=== PATIENT | male | born 1955 | race Caucasian/White ===

== ENCOUNTER 2018-08-07 10:42 | Outpatient (CLI) | payer OTHER, SELFPAY ==
[2018-08-07] VITALS (8 sets, daily range): BP systolic 106–129; BP diastolic 60–82; PULSE 69–88; RESP 16–18; TEMP 36.5; O2SAT 98–100
--- NOTE | 2018-08-07 10:42 | DI.RAD.S_ITS ---
PROCEDURE: PAIN L/SI FACET INJ/BLK 1STL INDICATIONS: SPONDYLOSIS FINDINGS: Fluoroscopic spot filming was performed to verify placement of spinal needles at the L4-5, L5-S1 level(s), as labeled on the films. Appropriate location(s) of the needle tip(s) was confirmed by injection of iodinated contrast. Dictated by: Andre Meneses M.D. on 08/07/2018 at 13:03 Approved by: Andre Meneses M.D. on 08/07/2018 at 13:04
[2018-08-07] MEDS: MIDAZOLAM 5 MG/5 ML VIAL IV (11:29)
[2018-08-07] MEDS: IOPAMIDOL 15 ML VIAL 3 ML INJ (11:33)
[2018-08-07] MEDS: BETAMETHASONE 30 MG/5 ML MDV 12 MG INJ (11:34)
[2018-08-07] MEDS: BUPIVACAINE 0.5% (PF) VIAL 2 ML INJ (11:34)
--- NOTE | 2018-08-07 11:39 | PC.NURSE ---
assiting pt off table and transporting to post proc area in stable condition
--- NOTE | 2018-08-07 11:41 | P.PCN_ITS ---
Procedures Date/Time Date of procedure: 08/07/18 Time of procedure: 11:40 General Procedure description: PREOP DIAGNOSIS 1. FACET ARTHROPATHY, 2. AXIAL LBP, 3. MULTILEVEL DDD, POST OP DIAGNOSIS 1. FACET ARTHROPATHY, 2. AXIAL LBP, 3. MULTILEVEL DDD, PROCEDURES 1. FLUORSCOPICALLY GUIDED CONTRAST CONTROLLED FACET JOINT INJECTIONS RIGHT L4/5 , L5/S1 SURGEON: Madi Schultz, DO INDICATIONS Hao is referred by for treatment of Axial LBP FINDINGS Multilevel Facet Arthropathy with Clinically significant axial LBP DESCRIPTION OF PROCEDURE Fluoroscopically guided, contrast-controlled right L4/5, L5/S1 facet joint injections. Following denial of allergy and review of potential side effects and complications, including, but not necessarily limited to, infection, allergic reaction, local tissue breakdown, stroke, temporary or permanent nerve injury, paralysis, and possible , the patient indicated that the patient understood and agreed to proceed. An informed consent document was signed by the patient, witnessed by a nurse, and placed in the patient's chart. Additionally, other treatment options including medications, modalities, and physical therapy were reviewed with the patient. After review of previous anaesthesic history and IV conscious sedation the patient was deemed safe to proceed with todays procedure with IV conscious sedation as ASA class II designation. Safety time-out was performed to confirm patient ID, procedure to be performed and site of procedure. IV sedation was accomplished with a combination of 3mg was administered by the RN after DO order , titrated to patient comfort during the course of the procedure while the patient remained responsive to all verbal commands. In the prone position, following sterile prep and drape of the lumbar region, the posterior aspect of the right L4/5, L5/S1 facet joints were identified fluoroscopically. The skin was anesthetized via a 25-gauge 1.5-inch needle with 1% lidocaine solution into the corresponding facet joints. At this point, a 22-gauge 3.5-inch spinal needle was atraumatically introduced and advanced under fluoroscopic guidance into the corresponding facet joints. Following negative aspiration, injections of approximately 0.2-cc of Isovue 200 confirmed interarticular placement without vascular uptake. Radiological data, including multiple fluoroscopic views of the lumbosacral spine, reveal a spinal needle at the right L4/5, L5/S1 facet joints. Subsequent views show flow of contrast material both superiorly and inferiorly within the joint space without vascular or intrathecal uptake. At this point, a total of 0.5 cc including a mixture of 0.25cc Marcaine and 0.25cc betamethasone was injected without complication into each of the corresponding facet joints. The procedure tolerated the procedure well without signs or symptoms of complications prior to transfer to the recovery area continued monitoring without incident. The patient was then transferred to the recovery area where they were observed for an appropriate period of time after the injection. The patient reported a VAS score of 7 prior to the procedure and a post-procedure VAS of 0. Total Fluoroscopy Time: 12.7 seconds Total Conscious Sedation Time: 24min POST OP INSTRUCTIONS The patient was provided a Pain Log to continue to record their response to the target-specific procedure prior to follow-up visit with their referring physician. Additionally, specific post-injection care instructions and a contact number to our office were provided if concerns arise regarding possible complications associated with the procedure are suspected. Madi Schultz, Complications: none
== END 2018-08-07 12:07 | disposition home or self-care (01) ==
LOC: RAD 10:42
PROVIDERS: Family Provider Neurological Surgery; PCP Family Medicine; Visit Provider Physical Medicine & Rehabilitation
DX: M47.816 Spondylosis without myelopathy or radiculopathy, lumbar region (principal); M47.817 Spondylosis without myelopathy or radiculopathy, lumbosacral region; M54.5 Low back pain; M51.36 Other intervertebral disc degeneration, lumbar region; M51.37 Other intervertebral disc degeneration, lumbosacral region
CPT/HCPCS: 64493; 64494; 99152; J0702; J2250

== ENCOUNTER 2018-08-28 10:21 | Outpatient (CLI) | payer OTHER, SELFPAY ==
[2018-08-28] VITALS (9 sets, daily range): BP systolic 119–147; BP diastolic 71–87; PULSE 74–91; RESP 16–18; TEMP 36.3; O2SAT 98–100
--- NOTE | 2018-08-28 10:24 | DI.RAD.S_ITS ---
PROCEDURE: PAIN L/S TRANSFORAMINAL INJECT INDICATIONS: SPONDYLOSIS FINDINGS: Fluoroscopic spot filming was performed to verify placement of spinal needles at the right L4-5 level, as labeled on the films. Appropriate location(s) of the needle tip(s) was confirmed by injection of iodinated contrast. IMPRESSION: Normal positioning of a injection needle tip for perineural epidural right L4-5 steroid injection. Dictated by: Orlando Hopson M.D. on 08/28/2018 at 12:16 Approved by: Orlando Hopson M.D. on 08/28/2018 at 12:17
[2018-08-28] MEDS: MIDAZOLAM 5 MG/5 ML VIAL IV (10:58)
[2018-08-28] MEDS: DEXAMETHASONE 10 MG/ML VIAL 20 MG INJ (11:04)
[2018-08-28] MEDS: IOPAMIDOL 15 ML VIAL 3 ML INJ (11:04)
[2018-08-28] MEDS: methylPREDNISolone acetate 80 MG/ML VIAL INJ (11:04)
[2018-08-28] MEDS: BUPIVACAINE 0.25% (PF) VIAL 2 ML INJ (11:04)
--- NOTE | 2018-08-28 11:06 | PC.NURSE ---
assisting pt off table and transporting to post proc area in stable condition
--- NOTE | 2018-08-28 11:11 | P.PCN_ITS ---
Procedures Date/Time Date of procedure: 08/28/18 Time of procedure: 11:11 General Procedure description: PREOP DIAGNOSIS 1. FORMAINAL STENOSIS WITH LE SYMPTOMS POST OP DIAGNOSIS 1. FORMAINAL STENOSIS WITH LE SYMPTOMS PROCEDURES 1. FLUOROSCOPICALLY GUIDED CONTRAST CONTROLLED TRANSFORAMINAL EPIDURAL STEROID INJECTION - RIGHT L4/5 TFESI PHYSICIAN: Madi Schultz DO INDICATIONS: Hao is referred by Dr. Velarde for treatment of HNP with Right LE Symptoms FINDINGS Foraminal Nerve Root Compression secondary to disc disease and facet hypertrophy DESCRIPTION OF PROCEDURE: Following denial of allergy and review of potential side effects and complications, including, but not necessarily limited to, infection, allergic reaction, local tissue breakdown, stroke, temporary or permanent nerve injury, paralysis, and possible , the patient indicated that the patient understood and agreed to proceed. An informed consent document was signed by the patient, witnessed by a nurse, and placed in the patient's chart. Additionally, other treatment options including medications, modalities, and physical therapy were reviewed with the patient. After review of previous anaesthesic history and IV conscious sedation the patient was deemed safe to proceed with todays procedure with IV conscious sedation as ASA class II designation. Safety time-out was performed to confirm patient ID, procedure to be performed and site of procedure. IV sedation was accomplished with a combination of 3mg of Versed was administered by the RN after DO order, titrated to patient comfort during the course of the procedure while the patient remained responsive to all verbal commands In the prone position following sterile prep and drape of the lumbar region, the Right L4/5 posterior neuroforamen was identified fluoroscopically. The skin was anesthetized via a 25-gauge 1.5-inch needle with 1% lidocaine solution. At this point, a 25-gauge 3.5-inch spinal needle was atraumatically introduced and advanced under fluoroscopic guidance through the posterior Right L4/5 neuroforamen to approximately the anterior aspect of the canal. Depth was confirmed on lateral view. Following negative aspiration, injection of approximately 1.5 cc of Isovue 200 under live fluoroscopy in the AP view confirmed excellent flow along the nerve root, into the epidural space without vascular or intrathecal uptake observed Radiological data, including multiple fluoroscopic views of the lumbosacral spine, reveal a spinal needle at the right L4/5 posterior neuroforamen. Subsequent views show flow of contrast material flowing superiorly and inferiorl y along the nerve root confirming epidural flow. Subsequently, a test dose of 1.5 cc of 1% lidocaine solution was administered and patient was observed for two minutes for signs or symptoms of complications, including abdominal pain, shortness of breath, bilateral upper or lower extremity weakness, nausea and vomiting, prior to steroid injection. At this point, a total of 3 cc or 20 mg of dexamethasone and 80mg Depo Medrol was injected without incident. The procedure tolerated the procedure well without signs or symptoms of complications prior to transfer to the recovery area continued monitoring without incident.The patient was then transferred to the recovery area where they were observed for an appropriate time after the injection. The patient reported a VAS score of 7 prior to the procedure and a post- procedure VAS of 0. Total Fluoroscopy Time: 20.9 seconds Total Conscious Sedation Time: 24min POST OP INSTRUCTIONS The patient was provided a Pain Log to continue to record their response to the target-specific procedure prior to follow-up visit with their referring physician. Additionally, specific post-injection care instructions and a contact number to our office were provided if concerns arise regarding possible complications associated with the procedure are suspected. Madi Schultz DO Complications: none
--- NOTE | 2018-08-28 11:31 | PC.NURSE ---
returning via w/c from post procedure, is alert and awake, pt able to transfer self from w/c to chair. and resuming monitoring from ferny meyer.
--- NOTE | 2018-08-28 11:37 | PC.NURSE ---
work note given.
--- NOTE | 2018-08-28 11:49 | PC.NURSE ---
returning via w/c from post procedure, is alert and able to transfer self from w/c to chair, assuming monitoring from ferny meyer.
== END 2018-08-28 11:47 | disposition home or self-care (01) ==
LOC: RAD 10:22
PROVIDERS: PCP Family Medicine; Visit Provider Physical Medicine & Rehabilitation
DX: M48.061 Spinal stenosis, lumbar region without neurogenic claudication (principal); M51.16 Intervertebral disc disorders with radiculopathy, lumbar region
CPT/HCPCS: 64483; 99152; J1040; J1100; J2250

== ENCOUNTER → 2018-11-15 09:12 | Outpatient (CLI) | payer OTHER, SELFPAY ==
--- NOTE | 2018-11-15 09:13 | DI.MRI.S_ITS ---
PROCEDURE: MR LUMBAR SPINE WO CON INDICATIONS: Eval TECHNIQUE: Noncontrast sagittal T1 spin echo and T2 fast echo, sagittal STIR, axial T1 and T2 fast spin echo through the lumbar spine. In cases with scoliosis, additional coronal T2 fast spin echo may be performed. COMPARISON: [facility], MR, L-SPINE WITHOUT CONTRAST, 11/02/2016, 9:12. [facility], CR, L-SPINE 2-3 VIEWS, 02/06/2017, 11:46. [facility], CR, L-SPINE 2-3 VIEWS, 02/28/2017, 14:33. FINDINGS: Image quality: Excellent. Alignment and Curvature: There is minimal anterolisthesis at the L3-L4 level. Mild retrolisthesis is seen at L5-S1. There is overall straightening of the normal lumbar lordosis. Bone Marrow: Marrow is of normal overall signal. No acute vertebral body compression fractures. Spinal Cord: Conus medullaris terminates at the L1 level. Visualized cord demonstrates normal signal and size. Paraspinous Soft Tissues: No paravertebral masses. At the inferior pole of the left kidney, there is a 3.2 cm cyst again seen. T12-L1: No significant abnormality is seen. L1-L2: The disc height and disc signal are relatively well-preserved. Mild disc bulge is seen, which is eccentric to the left. Mild facet joint hypertrophy is seen. There is mild to moderate left-sided and no significant right-sided neural foraminal narrowing seen. Cpvr-iv-zoflxiww central canal narrowing is seen. These degenerative changes are mildly progressed compared to 2017. L2-L3: Mild loss of disc height is seen. Loss of disc signal is seen. Moderate disc bulge is seen, which is eccentric to the right. Onjy-eo-zhbtznfg facet hypertrophy is seen. There is moderate right-sided and mild left-sided neural foraminal narrowing seen. Moderate to severe central canal narrowing is seen, as on series 5 image 15. No significant change from the prior. L3-L4: The disc height is well-preserved. Loss of disc signal is seen at this level. Moderate generalized disc bulge is seen. Moderate right disc bulge is seen. Moderate bilateral neural foraminal narrowing is seen, left worse than right. There is severe central canal narrowing, as on series 5 image 20. When comparison is made with the prior examination, these findings are similar. L4-L5: The disc height is well-preserved. Loss of disc signal is seen at this level. There is a focal annular fissure seen posteriorly. Moderate disc bulge is seen, with a central disc protrusion. Moderate facet hypertrophy is seen, left worse than right. There is moderate bilateral neural foraminal narrowing seen, left worse than right. There is severe central canal narrowing, as on series 5 image 25. When comparison is made with the prior examination, these findings are similar. L5-S1: Moderate to severe loss of disc height and disc signal can be seen. Moderate generalized disc bulge is seen. There is mild to moderate right-sided and moderate left-sided facet hypertrophy seen. There is moderate right-sided and moderate to severe left-sided neural foraminal narrowing seen. There is a degree of compression seen upon the exiting nerve roots. Minimal central canal narrowing is seen. IMPRESSION: Multiple levels of lumbar spine degenerative change are seen, which are relatively similar to 2017, although mildly progressed at L1-L2. There is severe central canal narrowing seen at L3-L4 and L4-L5. There is compression seen upon the exiting L5 nerve roots. Dictated by: Riaz Anderson M.D. on 11/15/2018 at 9:44 Approved by: Riaz Anderson M.D. on 11/15/2018 at 9:51
== END ==
PROVIDERS: PCP Family Medicine; Visit Provider Family Medicine
DX: M51.26 Other intervertebral disc displacement, lumbar region (principal); M47.816 Spondylosis without myelopathy or radiculopathy, lumbar region; M47.817 Spondylosis without myelopathy or radiculopathy, lumbosacral region; M48.061 Spinal stenosis, lumbar region without neurogenic claudication; M48.07 Spinal stenosis, lumbosacral region
CPT/HCPCS: 72148

== ENCOUNTER 2018-12-12 10:09 | Outpatient (CLI) | payer OTHER, SELFPAY ==
[2018-12-12] VITALS (7 sets, daily range): BP systolic 112–131; BP diastolic 69–78; PULSE 71–83; RESP 16–18; TEMP 36.1; O2SAT 98–100
--- NOTE | 2018-12-12 10:10 | DI.RAD.S_ITS ---
PROCEDURE: PAIN L INTERLAMINAR/CAUDAL INJ INDICATIONS: OTHER INTERVERTEBRAL DISC DISPLACEMENT FINDINGS: Fluoroscopic spot filming was performed to verify placement of spinal needles at the L4-L5 paramedian dorsal interlaminar level, as labeled on the films. Appropriate location(s) of the needle tip(s) was confirmed by injection of iodinated contrast. IMPRESSION: Successful dorsal paramedian needle tip localization at L4-L5 for interlaminar epidural steroid injection. Dictated by: Orlando Hopson M.D. on 12/12/2018 at 11:28 Approved by: Orlando Hopson M.D. on 12/12/2018 at 11:29
[2018-12-12] MEDS: MIDAZOLAM 5 MG/5 ML VIAL IV (10:50)
[2018-12-12] MEDS: BUPIVACAINE 0.25% (PF) VIAL 2 ML INJ (10:56)
[2018-12-12] MEDS: IOPAMIDOL 15 ML VIAL 3 ML INJ (10:56)
[2018-12-12] MEDS: BETAMETHASONE 30 MG/5 ML MDV 6 MG INJ (10:57)
[2018-12-12] MEDS: DEXAMETHASONE 10 MG/ML VIAL 20 MG INJ (10:57)
--- NOTE | 2018-12-12 11:07 | PC.NURSE ---
ACCEPTED CARE OF PT IN POST PROC AREA IN STABLE CONDITION
--- NOTE | 2018-12-12 11:09 | P.PCN_ITS ---
Procedures Date/Time Date of procedure: 12/12/18 Time of procedure: 11:08 General Procedure description: PROVIDER: Madi Schultz DO Operative Note PREOP DIAGNOSIS 1. HNP WITH RADICULAR FEATURES, 2. MULTILEVEL CENTRAL STENOSIS, POST OP DIAGNOSIS 1. HNP WITH RADICULAR FEATURES, 2. MULTILEVEL CENTRAL STENOSIS PROCEDURES 1. FLUORSCOPICALLY GUIDED CONTRAST CONTROLLED INTERLAMINAR EPIDURAL STEROID INJECTION -L4/5 PHYSICIAN: Madi Schultz DO INDICATIONs: Hao is referred by for treatment of Bilateral Foraminal Stenosis R>L LE symptoms. FINDINGS Multilevel Central Spinal Stenosis with Nerve Root Compression DESCRIPTION OF PROCEDURE Fluoroscopically guided, contrast-controlled L4/5 translaminar epidural steroid injection. Following denial of allergy and review of potential side effects and complications, including, but not necessarily limited to, infection, allergic reaction, local tissue breakdown, temporary as well as permanent nerve injury, paralysis, stroke and possible , the patient indicated that the patient understood and agreed to proceed. An informed consent document was signed by the patient, witnessed by a nurse, and placed in the patient's chart. Additionally, other treatment options including modalities, medications, and physical therapy were reviewed with the patient. After review of previous anaesthesic history and IV conscious sedation the patient was deemed safe to proceed with todays procedure with IV conscious sedation as ASA class II designation. Safety time-out was performed to confirm patient ID, procedure to be performed and site of procedure. IV sedation was accomplished with a combination of 3mg of Versed was administered by the RN after DO order, titrated to patient comfort during the course of the procedure while the patient remained responsive to all verbal commands In the prone position, following sterile prep and drape of the lumbar region, the L4/5 translaminar space was identified fluoroscopically. The skin was anesthetized via a 25-gauge, 1.5-inch needle with 1% lidocaine solution. At this point, a 22-gauge short bevel spinal needle was atraumatically introduced and advanced under fluoroscopic guidance into the region of the L4/5 [place] slaminar space. Depth was confirmed on lateral view. Radiological data, including multiple fluoroscopic views of the lumbar spine, reveal a spinal needle at the L4/5 translaminar space. Lateral views then show placement of the needle in the epidural space. Subsequent views show contrast material flowing superiorly and inferiorly in the epidural space. No vascular or intrathecal uptake is observed. At this point, using loss of resistance technique with saline and air, the epidural space was entered. This was confirmed following negative aspiration with injection of approximately 1.5 cc of Isovue 200, showing excellent epidural flow without vascular or intrathecal uptake. At this point, 1 cc of 1% lidocaine solution combined with 2cc or 20mg of dexamethasone was injected without incident. The patient tolerated the procedure well without signs or symptoms of complications prior to transfer to the recovery area continued monitoring without incident. The patient was then transferred to the recovery area where they were observed for an appropriate period of time after the injection. The patient reported a VAS score of 6 prior to the procedure and a post- procedure VAS of 0. Total Fluoroscopy Time: 11.8 seconds, 8.99 mGy Total Conscious Sedation Time: 24min POST OP INSTRUCTIONS The patient was provided a Pain Log to continue to record their response to the target-specific procedure prior to follow-up visit with their referring physician. Additionally, specific post-injection care instructions and a contact number to our office were provided if concerns arise regarding possible complications associated with the procedure are suspected. Madi Schultz DO Complications: none
--- NOTE | 2018-12-12 11:10 | PC.NURSE ---
pt tolerated procedure well. Able to get off table with standby assist. Transferred pt via wheelchair to pre procedure room for continued monitoring with Isidra TEJADA.
== END 2018-12-12 11:43 | disposition home or self-care (01) ==
LOC: RAD 10:10
PROVIDERS: PCP Family Medicine; Visit Provider Physical Medicine & Rehabilitation
DX: M51.16 Intervertebral disc disorders with radiculopathy, lumbar region (principal); M48.061 Spinal stenosis, lumbar region without neurogenic claudication
CPT/HCPCS: 62323; 99152; J0702; J1100; J2250; J3010

== ENCOUNTER 2019-02-13 15:18 | Outpatient (CLI) | payer OTHER, SELFPAY ==
[2019-02-13] VITALS (7 sets, daily range): BP systolic 99–135; BP diastolic 56–86; PULSE 75–87; RESP 16; O2SAT 97–100
--- NOTE | 2019-02-13 15:23 | DI.RAD.S_ITS ---
PROCEDURE: PAIN SI JOINT INJECTION INDICATIONS: LUMBOSACRAL SPONDYLOSIS FINDINGS: Fluoroscopic spot filming was performed to verify placement of spinal needles at the right SI joint, as labeled on the films. Appropriate location(s) of the needle tip(s) was confirmed by injection of iodinated contrast. IMPRESSION: Fluoroscopy for pain management. Dictated by: Annamarie Craig M.D. on 02/13/2019 at 17:37 Approved by: Annamarie Craig M.D. on 02/13/2019 at 17:37
[2019-02-13] MEDS: MIDAZOLAM 5 MG/5 ML VIAL IV (15:50)
[2019-02-13] MEDS: fentaNYL 100 MCG/2 ML INJ 50 MCG IV (15:50)
[2019-02-13] MEDS: IOPAMIDOL 15 ML VIAL 3 ML INJ (15:52)
[2019-02-13] MEDS: BETAMETHASONE 30 MG/5 ML MDV 12 MG INJ (15:53)
[2019-02-13] MEDS: BUPIVACAINE 0.5% (PF) VIAL 2 ML INJ (15:53)
--- NOTE | 2019-02-13 16:01 | PC.NURSE ---
pt tolerated procedure well. Pt able to get off table with standby assist. Transferred pt to pre procedure room via wheelchair for continued monitoring with Isidra TEJADA.
--- NOTE | 2019-02-13 16:11 | P.PCN_ITS ---
Procedures Date/Time Date of procedure: 02/13/19 Time of procedure: 16:07 General Procedure description: PREOP Dx: Sacroiliac joint pain/DJD POST OP DX: Sacroiliac Joint Pain/DJD Procedures: Fluoroscopic guided contrast controlled right sacroiliac joint injection Physician: Madi Schultz D.O. Indications: Hao is referred by Dr. Velarde for treatment of right sacroiliac joint DJD Description of procedure Fluoroscopic guided, contrast controlled right sacroiliac joint injection Following review of allergies and review of potential side effects and complications, including, but not necessarily limited to, infection, allergic reaction, local tissue breakdown, temporary as well as permanent nerve injury, paralysis, stroke and possible , the patient indicated that they understood and agreed to proceed. An informed consent was signed by the patient, witnessed by a nurse, and placed in the patient's chart. Additionally, other treatment options including modalities, medications, and physical therapy were reviewed with the patient. After review of previous anaesthesic history and IV conscious sedation the patient was deemed safe to proceed with todays procedure with IV conscious sedation as ASA class II designation. Safety time-out was performed to confirm patient ID, procedure to be performed and site of procedure. IV sedation was accomplished with a combination of 2mg Versed and 50mcg of Fentanyl was admini stered by the RN after DO order, titrated to patient comfort during the course of the procedure while the patient remained responsive to all verbal commands In the prone position following sterile prep and drape of the pelvic region, the hyper lucency on in the inferior aspect of the sacroiliac joint was identified fluoroscopically the skin was anesthetized be a 25 gauge 1 eventual with approximately 2 cc of 1% lidocaine solution. At this point, a 22 gauge 3 in spinal needle was atraumatically introduced and advanced under fluoroscopic guidance into the inferior aspect of the right sacroiliac joint. Following negative aspiration, approximately 0.3 cc of Isovue-300 was injected confirming intra-articular placement without vascular uptake. Radiographic data, including multiple fluoroscopic views of the pelvis, reveals a spinal needle in the sacroiliac joint hyper lucent zone. Subsequent view show flow contrast tear superiorly and inferiorly within the joint capsule without vascular intrathecal uptake. At this point a total of 1 cc of 0.5% Marcaine was combined with 1 cc of 6mg of betamethasone was injected without incident. The procedure tolerated the procedure well without signs or symptoms of complications prior to transfer to the recovery area continued monitoring without incident. The patient was then transferred to the recovery area with a bur observed for an appropriate time after the injection. The patient reverted a vas score of 7 prior to the procedure and postprocedure vas of 1. Total fluoroscopy time: 22.7 sec Total conscious sedation time: 24 min Postop instructions The patient was provided with a pain like to continue to record the patient's response to the target specific procedure prior to the patient's follow-up visit with the referring physician. Additionally, specific post injection care instructions and a contact number to our office were provided if concerns arise regarding the possible complications associated with procedure are suspected. Madi Schultz D.O. Complications: none
== END 2019-02-13 16:46 | disposition home or self-care (01) ==
PROVIDERS: PCP Family Medicine; Visit Provider Physical Medicine & Rehabilitation
DX: M96.1 Postlaminectomy syndrome, not elsewhere classified (principal); M47.817 Spondylosis without myelopathy or radiculopathy, lumbosacral region
CPT/HCPCS: 27096; 99152; J0702; J2250; J3010

== ENCOUNTER 2019-06-12 09:51 | Outpatient (CLI) | payer OTHER, SELFPAY ==
[2019-06-12] VITALS (8 sets, daily range): BP systolic 116–148; BP diastolic 66–98; PULSE 66–76; RESP 16–18; TEMP 36.7; O2SAT 72–100
--- NOTE | 2019-06-12 09:52 | DI.RAD.S_ITS ---
PROCEDURE: PAIN L/S TRANSFORAMINAL INJECT INDICATIONS: SPONDYLOSIS FINDINGS: Fluoroscopic spot filming was performed to verify placement of spinal needles at the L5-S1 on level(s), as labeled on the films. Appropriate location(s) of the needle tip(s) was confirmed by injection of iodinated contrast. IMPRESSION: Successful needle tip localization at L5-S1 for transforaminal epidural steroid injection. Dictated by: Orlando Hopson M.D. on 06/12/2019 at 14:09 Approved by: Orlando Hopson M.D. on 06/12/2019 at 14:10
[2019-06-12] MEDS: fentaNYL 100 MCG/2 ML INJ 50 MCG IV (11:29)
[2019-06-12] MEDS: MIDAZOLAM 5 MG/5 ML VIAL IV (11:29)
[2019-06-12] MEDS: BUPIVACAINE 0.5% (PF) VIAL 2 ML INJ (11:35)
[2019-06-12] MEDS: IOPAMIDOL 15 ML VIAL 3 ML INJ (11:40)
[2019-06-12] MEDS: BETAMETHASONE 30 MG/5 ML MDV 6 MG INJ (11:40)
[2019-06-12] MEDS: DEXAMETHASONE 10 MG/ML VIAL 20 MG INJ (11:40)
--- NOTE | 2019-06-12 11:41 | PM.PROC.1 ---
Procedures Date/Time Date of procedure: 06/12/19 Time of procedure: 11:41 General Procedure description: PREOP DIAGNOSIS 1. FORMAINAL STENOSIS WITH LE SYMPTOMS, POST OP DIAGNOSIS 1. FORMAINAL STENOSIS WITH LE SYMPTOMS, PROCEDURES 1.FLUOROSCOPICALLY GUIDED CONTRAST CONTROLLED TRANSFORAMINAL EPIDURAL STEROID INJECTION - RIGHT L5/S1 TFESI PHYSICIAN: Madi Schultz DO INDICATIONS: Hao is referred by Dr. Rosado and Syd for treatment of Foraminal Stenosis with right LE Symptoms FINDINGS Foraminal Nerve Root Compression secondary to disc disease and facet hypertrophy DESCRIPTION OF PROCEDURE Following review of allergy and review of potential side effects and complications, including, but not necessarily limited to, infection, allergic reaction, local tissue breakdown, stroke, temporary or permanent nerve injury, paralysis, and possible , the patient indicated that the patient understood and agreed to proceed. An informed consent document was signed by the patient, witnessed by a nurse, and placed in the patient's chart. Additionally, other treatment options including medications, modalities, and physical therapy were reviewed with the patient. After review of previous anaesthesic history and IV conscious sedation the patient was deemed safe to proceed with todays procedure with IV conscious sedation as ASA class II designation. Safety time-out was performed to confirm patient ID, procedure to be performed and site of procedure. IV sedation was accomplished with a combination of 2mg of Versed and 50mcg of Fentanyl was administered by the RN after DO order, titrated to patient comfort during the course of the procedure while the patient remained responsive to all verbal commands In the prone position following sterile prep and drape of the lumbar region, the right L5/S1 posterior neuroforamen was identified fluoroscopically. The skin was anesthetized via a 25-gauge 1.5-inch needle with 1% lidocaine solution. At this point, a 25-gauge 3.5-inch spinal needle was atraumatically introduced and advanced under fluoroscopic guidance through the posterior right L5/S1 neuroforamen to approximately the anterior aspect of the canal. Depth was confirmed on lateral view. Following negative aspiration, injection of approximately 1.5 cc of Isovue 200 under live fluoroscopy in the AP view confirmed excellent flow along the nerve root, into the epidural space without vascular or intrathecal uptake observed Radiological data, including multiple fluoroscopic views of the lumbosacral spine, reveal a spinal needle at the right L5/S1 posterior neuroforamen. Subsequent views show flow of contrast material flowing superiorly and inferiorly along the nerve root confirming epidural flow. Subsequently, a test dose of 1.5 cc of 1% lidocaine solution was administered and patient was observed for two minutes for signs or symptoms of complications, including abdominal pain, shortness of breath, bilateral upper or lower extremity weakness, nausea and vomiting, prior to steroid injection. At this point, a total of 4cc or 20mg of dexamethasone and 12mg betamethasone was injected without incident. The procedure tolerated the procedure well without signs or symptoms of complications prior to transfer to the recovery area continued monitoring without incident. The patient was then transferred to the recovery area where they were observed for an appropriate time after the injection. The patient reported a VAS score of 7 prior to the procedure and a post-procedure VAS of 0. Total Fluoroscopy Time: 20.9 seconds Total Conscious Sedation Time: 24min POST OP INSTRUCTIONS The patient was provided a Pain Log to continue to record their response to the target-specific procedure prior to follow-up visit with their referring physician. Additionally, specific post-injection care instructions and a contact number to our office were provided if concerns arise regarding possible complications associated with the procedure are suspected. Madi Schultz, Complications: none
--- NOTE | 2019-06-12 11:50 | PC.NURSE ---
Post procedure note: time out at 1127. patient medicated per providers orders. tolerated procedure well. VSS througout. Able to sit up and transfer to wheelchair without difficulties. handoff report given to Melissa Archer RN. patient able to transfer to recliner from w/c without difficulties and stand by assist. Pian level 0-08/01. Denies any unusual numbness or tingling to lower extremtities.
== END 2019-06-12 12:03 | disposition home or self-care (01) ==
PROVIDERS: PCP Family Medicine; Visit Provider Physical Medicine & Rehabilitation
DX: M48.07 Spinal stenosis, lumbosacral region (principal); M51.17 Intervertebral disc disorders with radiculopathy, lumbosacral region
CPT/HCPCS: 64483; 99152; J0702; J1100; J2250; J3010

== ENCOUNTER → 2020-10-18 11:10 | Outpatient (CLI) | payer OTHER, SELFPAY ==
--- NOTE | 2020-10-18 11:12 | DI.RAD.S_ITS ---
PROCEDURE: XR LUMBAR SPINE MIN 4V INDICATIONS: back pain TECHNIQUE: 5 views of the lumbar spine were acquired, including bilateral oblique views. COMPARISON: 09/17/17. FINDINGS: Bones: No fracture. Multilevel degenerative endplate sclerosis and spurring. Diffuse facet arthropathy. Straightening of the normal lordotic curvature. Severe narrowing of the L5-S1 disc space. Moderate narrowing of the L2-L3 disc space. Soft tissues: Overlying bowel gas pattern is normal. No suspicious soft tissue calcifications. Scattered vascular calcifications incidentally noted in the aorta. Oblique images: No pars defects. IMPRESSION: Multilevel lumbar spondylosis and facet arthropathy as detailed above most pronounced at L5-S1, with interval progression at the L2-L3 level. Dictated by: Andre Meneses M.D. on 10/18/2020 at 13:48 Approved by: Andre Meneses M.D. on 10/18/2020 at 13:49
== END ==
PROVIDERS: PCP Family Medicine; Referring Provider Physical Medicine & Rehabilitation; Visit Provider Physical Medicine & Rehabilitation
DX: M47.817 Spondylosis without myelopathy or radiculopathy, lumbosacral region (principal); M51.26 Other intervertebral disc displacement, lumbar region; M96.1 Postlaminectomy syndrome, not elsewhere classified
CPT/HCPCS: 72110; 99214

== ENCOUNTER → 2020-11-23 07:59 | Outpatient (CLI) | payer OTHER, SELFPAY ==
[2020-11-23 14:31] LABS: COVID19 -Nasal RAPID Negative (Negative)
== END ==
PROVIDERS: PCP Family Medicine; Visit Provider Physical Medicine & Rehabilitation
DX: Z20.822 Contact with and (suspected) exposure to COVID-19 (principal)
CPT/HCPCS: 87635; C9803

== ENCOUNTER 2020-11-25 12:00 | Outpatient (CLI) | payer OTHER, SELFPAY ==
[2020-11-25] VITALS (9 sets, daily range): BP systolic 107–158; BP diastolic 59–95; PULSE 69–81; RESP 12–18; TEMP 36.4; O2SAT 96–100
--- NOTE | 2020-11-25 12:04 | DI.RAD.S_ITS ---
PROCEDURE: PAIN L/S TRANSFORAMINAL INJECT INDICATIONS: SPONDYLOSIS COMPARISON: [facility], , PAIN L/S TRANSFORAMINAL INJECT, 06/12/2019, 11:34. FINDINGS: Fluoroscopic spot filming was performed to verify placement of a spinal needle at the L5-S1 level, as labeled on the films. Appropriate location of the needle tip was confirmed by injection of iodinated contrast. IMPRESSION: No significant intraprocedural abnormality. Dictated by: Riaz Anderson M.D. on 11/25/2020 at 12:44 Approved by: Riaz Anderson M.D. on 11/25/2020 at 12:44
[2020-11-25] MEDS: fentaNYL 100 MCG/2 ML INJ 50 MCG IV (13:05)
[2020-11-25] MEDS: MIDAZOLAM 5 MG/5 ML VIAL IV (13:05)
[2020-11-25] MEDS: BUPIVACAINE 0.25% (PF) VIAL 2 ML INJ (13:11)
[2020-11-25] MEDS: methylPREDNISolone acetate 80 MG/ML VIAL INJ (13:11)
[2020-11-25] MEDS: IOPAMIDOL 15 ML VIAL 3 ML INJ (13:11)
[2020-11-25] MEDS: DEXAMETHASONE 10 MG/ML VIAL 20 MG INJ (13:12)
--- NOTE | 2020-11-25 13:21 | P.PCN_ITS ---
Date/Time/Diagnoses Date of procedure: 11/25/20 Time of procedure: 13:21 Pre-procedure diagnosis: FORAMINAL STENOSIS WITH LE SYMPTOMS Post-procedure diagnosis: same Procedure Notes Procedure: 1. FLUOROSCOPICALLY GUIDED CONTRAST CONTROLLED TRANSFORAMINAL EPIDURAL STEROID INJECTION - RIGHT L5/S1 TFESI Indications: Hao is referred for treatment of Foraminal Stenosis with Right LE Symptoms Physician: Madi Schultz Total Fluoroscopy time (seconds): 13 Total sedation minutes: 12 Complications: none Procedure in detail & Post-procedure care: FINDINGS Foraminal Nerve Root Compression secondary to disc disease and facet hypertrophy DESCRIPTION OF PROCEDURE Following review of allergy and review of potential side effects and complications, including, but not necessarily limited to, infection, allergic reaction, local tissue breakdown, stroke, temporary or permanent nerve injury, paralysis, and possible , the patient indicated that the patient understood and agreed to proceed. An informed consent document was signed by the patient, witnessed by a nurse, and placed in the patient's chart. Additionally, other treatment options including medications, modalities, and physical therapy were reviewed with the patient. After review of previous anaesthesic history and IV conscious sedation the patient was deemed safe to proceed with today?s procedure with IV conscious sedation as ASA class II designation. Safety time-out was performed to confirm patient ID, procedure to be performed and site of procedure. IV sedation was accomplished with a combination of 2mg of Versed and 50mcg of Fentanyl was administered by the RN after DO order, titrated to patient comfort during the course of the procedure while the patient remained responsive to all verbal commands In the prone position following sterile prep and drape of the lumbar region, the right L5/S1 posterior neuroforamen was identified fluoroscopically. The skin was anesthetized via a 25-gauge 1.5-inch needle with 1% lidocaine solution. At this point, a 25-gauge 3.5-inch spinal needle was atraumatically introduced and advanced under fluoroscopic guidance through the posterior right L5/S1 neuroforamen to approximately the anterior aspect of the canal. Depth was confirmed on lateral view. Following negative aspiration, injection of approximately 1.5cc of Isovue 200 under live fluoroscopy in the AP view confirmed excellent flow along the nerve root, into the epidural space without vascular or intrathecal uptake observed Radiological data, including multiple fluoroscopic views of the lumbosacral spine, reveal a spinal needle at the right L5/S1 posterior neuroforamen. Subsequent views show flow of contrast material flowing superiorly and inferiorly along the nerve root confirming epidural flow. Subsequently, a test dose of 1.5 cc of 1% lidocaine solution was administered and patient was observed for two minutes for signs or symptoms of complications, including abdominal pain, shortness of breath, bilateral upper or lower extremity weakness, nausea and vomiting, prior to steroid injection. At this point, a total of 3cc or 20mg of dexamethasone and 80mg depo-medrol was injected without incident. The procedure tolerated the procedure well without signs or symptoms of complications prior to transfer to the recovery area continued monitoring without incident. The patient was then transferred to the recovery area where they were observed for an appropriate time after the injection. The patient reported a VAS score of 7 prior to the procedure and a post- procedure VAS of 0. POST OP INSTRUCTIONS The patient was provided a Pain Log to continue to record their response to the target-specific procedure prior to follow-up visit with their referring physician. Additionally, specific post-injection care instructions and a contact number to our office were provided if concerns arise regarding possible complications associated with the procedure are suspected.
== END 2020-11-25 13:43 | disposition home or self-care (01) ==
LOC: RAD 12:03
PROVIDERS: Referring Provider Physical Medicine & Rehabilitation; Visit Provider Physical Medicine & Rehabilitation
DX: M48.07 Spinal stenosis, lumbosacral region (principal); M51.17 Intervertebral disc disorders with radiculopathy, lumbosacral region
CPT/HCPCS: 64483; 99152; J1040; J1100; J2250; J3010

== ENCOUNTER → 2021-07-01 11:25 | Outpatient (CLI) | payer OTHER, SELFPAY ==
--- NOTE | 2021-07-01 | DI.MRI.S_ITS ---
PROCEDURE: MR LUMBAR SPINE WO CON INDICATIONS: Spinal stenosis, lumbar region with neurogenic claudication TECHNIQUE: Noncontrast sagittal T1 spin echo and T2 fast echo, sagittal STIR, axial T1 and T2 fast spin echo through the lumbar spine. In cases with scoliosis, additional coronal T2 fast spin echo may be performed. COMPARISON: None. FINDINGS: Straightening of the usual lumbar lordosis. Retrolisthesis of L5 on S1 measuring 4 millimeters. Vertebral body heights maintained. No suspicious focal marrow signal abnormality or bone marrow edema. Normal position and appearance of the conus. Regional soft tissues are unremarkable. T12-L1: No spinal canal or neural foraminal stenosis. L1-L2: Mild spinal canal stenosis. Diffuse disc bulge flattens the ventral thecal sac and displaces the descending L2 nerve roots within both subarticular zones. No neural foraminal stenosis. Facet hypertrophy with small facet effusions. L2-L3: Moderate spinal canal stenosis with diffuse disc bulge flattening the ventral thecal sac and displacing the descending L3 nerve roots within both subarticular zones. Bulky facet hypertrophy and buckling of the ligamentum flavum further contribute to the spinal canal narrowing. These factors all combine to produce mild bilateral neural foraminal stenosis. Small facet effusions with subchondral cystic change noted. L3-L4: Severe spinal canal stenosis due to a combination of diffuse disc bulge, superimposed broad-based posterior disc protrusion, bulky facet hypertrophy, and buckling of the ligamentum flavum. CSF in the thecal sac is nearly entirely effaced. There is laxity of the nerve roots above this level suggesting an element of compression. These factors combine to produce moderate left and mild right neural foraminal stenosis. Subchondral cystic change in facet effusions noted. L4-L5: Severe spinal canal stenosis due to a combination of diffuse disc bulge with a superimposed broad-based posterior disc protrusion and a focal extrusion as well with mild inferior migration of disc material. Buckling of the ligamentum flavum and bulky facet hypertrophy further contribute to the spinal canal stenosis. There is almost certain compression of the traversing nerve roots with near complete effacement of CSF and laxity of the nerve roots above this level. These factors combine to produce moderate bilateral neural foraminal stenosis. Small facet effusions with subchondral cystic change. L5-S1: Diffuse disc bulge with a superimposed broad-based posterior disc protrusion displacing the descending S1 nerve roots within both subarticular zones, left greater than right. Moderate bilateral neural foraminal stenosis due to foraminal components of the disc bulge and facet hypertrophy. Small facet effusions with subchondral cystic change. IMPRESSION: Multilevel multifactorial degenerative changes. Severe spinal canal stenosis at L3-L4 and L4-L5. Varying degrees of neural foraminal stenosis up to moderate. Severe facet osteoarthropathy from L2-L3 through L5-S1 with associated facet effusions and subchondral cystic change. Dictated by: Stephane Guidry M.D. on 07/01/2021 at 13:12 Approved by: Stephane Guidry M.D. on 07/01/2021 at 13:24
== END ==
PROVIDERS: PCP Student in an Organized Health Care Education/Training Program; Referring Provider Orthopaedic Surgery Orthopaedic Surgery of the Spine; Visit Provider Orthopaedic Surgery Orthopaedic Surgery of the Spine
DX: M48.062 Spinal stenosis, lumbar region with neurogenic claudication (principal); M47.816 Spondylosis without myelopathy or radiculopathy, lumbar region; M47.817 Spondylosis without myelopathy or radiculopathy, lumbosacral region
CPT/HCPCS: 72148

== ENCOUNTER → 2023-03-14 15:26 | Outpatient (CLI) | payer MEDICARE, OTHER, SELFPAY ==
--- NOTE | 2023-03-14 | DI.MRI.S_ITS ---
PROCEDURE: MR LUMBAR SPINE WO CON INDICATIONS: Spinal stenosis, lumbar region with neurogenic claudication TECHNIQUE: Noncontrast sagittal T1 spin echo and T2 fast echo, sagittal STIR, and T2 fast spin echo through the lumbar spine. In cases with scoliosis, additional coronal T2 fast spin echo may be performed. COMPARISON: [facility], MR, MR LUMBAR SPINE WO CON, 07/01/2021, 11:53. FINDINGS: Image quality: Excellent. Alignment and Curvature: Straightening the normal lumbar lordosis. Grade 1 retrolisthesis of L5 on S1. Bone Marrow: Marrow is of normal overall signal. Degenerative endplate changes at L5-S1. No acute vertebral body compression fractures. Spinal Cord: Conus medullaris terminates at the L1 level. Visualized cord demonstrates normal signal and size. Paraspinous Soft Tissues: No paravertebral masses. Left renal cysts. T12-L1: Facet arthropathy. No central canal or neural foraminal stenosis. L1-L2: Disc desiccation and posterior disc bulge. Similar mild central canal stenosis. Facet arthropathy and thickening of ligamentum flavum. Epidural lipomatosis. No neural foraminal stenosis. L2-L3: Disc desiccation and posterior disc bulge. Facet arthropathy and thickening of ligamentum flavum. Epidural lipomatosis. Similar moderate central canal stenosis. No significant neural foraminal stenosis. Narrowing of the lateral recesses. L3-L4: Disc desiccation and posterior disc bulge. Facet arthropathy and thickening of ligamentum flavum. Epidural lipomatosis. Stable severe central canal stenosis. Laxity of nerve roots superiorly. Stable moderate left and mild right neural foraminal stenosis. L4-L5: Posterior disc bulge with superimposed central protrusion. Facet arthropathy and thickening of ligamentum flavum. Stable severe spinal canal stenosis. Stable moderate neural foraminal stenosis bilaterally. L5-S1: Grade 1 retrolisthesis. Posterior disc bulge. Facet arthropathy. Displacement of the descending S1 nerve roots in the bilateral subarticular zones, greater on the left. Stable moderate right and severe left neural foraminal stenosis. IMPRESSION: 1. Multilevel degenerative changes of the lumbar spine overall similar in appearance to prior. 2. Redemonstration of severe spinal canal stenosis at L3-L4 and L4-L5. 3. Varying degrees of neural foraminal stenosis as above. This is worse on the left at L5-S1 with severe neural foraminal stenosis. Dictated by: Antonio Treadwell M.D. on 03/14/2023 at 17:23 Approved by: Antonio Treadwell M.D. on 03/14/2023 at 17:30
== END ==
PROVIDERS: PCP Nurse Practitioner; Referring Provider Physical Medicine & Rehabilitation; Visit Provider Physical Medicine & Rehabilitation
DX: M48.062 Spinal stenosis, lumbar region with neurogenic claudication (principal); M47.816 Spondylosis without myelopathy or radiculopathy, lumbar region; M47.817 Spondylosis without myelopathy or radiculopathy, lumbosacral region; M48.07 Spinal stenosis, lumbosacral region
CPT/HCPCS: 72148

== ENCOUNTER → 2023-05-18 12:20 | Outpatient (CLI) | payer MEDICARE, OTHER, SELFPAY ==
--- NOTE | 2023-05-18 | DI.CT.S_ITS ---
PROCEDURE: CT LUMBAR SPINE WO CON INDICATIONS: Spinal stenosis, lumbar region with neurogenic cla TECHNIQUE: Noncontrast 3 mm thick sections acquired from the T12 level to the sacrum. Sagittal and coronal reformats were constructed. For radiation dose reduction, the following was used: automated exposure control. COMPARISON: [facility], MR, MR LUMBAR SPINE WO CON, 03/14/2023, 15:36. FINDINGS: Image quality: Excellent. Bones: Straightening of the normal lumbar lordosis. Mild retrolisthesis of L5 on S1. Multilevel intervertebral disc height loss with degenerative endplate changes and spurring. This is severe at L5-S1. Multilevel facet arthropathy, most pronounced at L4-5 and L5-S1. No acute vertebral body compression fractures. No suspicious lytic or blastic bony lesions. No pars defects. There is multilevel osseous central canal stenosis, severe at L3-L4 and L4-L5. Multilevel osseous neural foraminal stenosis, worse at L5-S1 with moderate right and severe left neural foraminal stenosis. Soft tissues: No retroperitoneal masses or hematomas. Visualized aorta is normal in caliber. Atherosclerotic vascular calcifications. IMPRESSION: Multilevel degenerative changes of the lumbar spine as described above. Redemonstration of severe central canal stenosis at L3-L4 and L4-L5. Osseous neural foraminal stenosis is worse at L5-S1. Dictated by: Antonio Treadwell M.D. on 05/18/2023 at 14:00 Approved by: Antonio Treadwell M.D. on 05/18/2023 at 14:04
[2023-05-18 13:25] LABS: Blood Urea Nitrogen 18 mg/dL (9-20); Calcium 9.2 mg/dL (8.4-10.2); Carbon Dioxide 27 mmol/L (22-32); Chloride 104 mmol/L (98-107); Estimated Glomerular Filt Rate > 60 mL/min (>60); Glucose 104 mg/dL (80-110); HEMOLYSIS < 15 (0-50); Potassium 3.9 mmol/L (3.4-5.1); Sodium 136 mmol/L (137-145)
[2023-05-18 13:30] LABS: Add Manual Diff / Slide Review NO; Basophils Absolute Auto 0 /uL (0-100); Basophils Percent Auto 0.4 % (0-2); Eosinophils Absolute Auto 400 /uL (0-450); Eosinophils Percent Auto 3.4 % (2-4); Hematocrit 44.4 % (41-53); Hemoglobin 15.2 g/dL (13.5-17.5); Lymphocytes Absolute Auto 800 /uL (1100-4500); Mean Corpuscular HGB Conc 34.2 % (30-36); Mean Corpuscular Hemoglobin 30.4 PG (26-34); Mean Corpuscular Volume 88.8 fL (80-100); Monocytes Absolute Auto 700 /uL (0-900); Neutrophils Absolute Auto 8600 /uL (1500-7000); Neutrophils Percent Auto 81.2 % (50-75); Platelet Count 268 X10^3/uL (150-400); Red Cell Distribution Width 12.7 % (11.6-14.8); White Blood Cell Count 10.6 X10^3/uL (4.5-11.0)
== END ==
PROVIDERS: PCP Nurse Practitioner; Referring Provider Orthopaedic Surgery Orthopaedic Surgery of the Spine; Visit Provider Orthopaedic Surgery Orthopaedic Surgery of the Spine
DX: M48.062 Spinal stenosis, lumbar region with neurogenic claudication (principal); Z01.812 Encounter for preprocedural laboratory examination; M48.07 Spinal stenosis, lumbosacral region; M47.816 Spondylosis without myelopathy or radiculopathy, lumbar region; M47.817 Spondylosis without myelopathy or radiculopathy, lumbosacral region
CPT/HCPCS: 36415; 72131; 80048; 85025

== ENCOUNTER 2023-05-18 12:56 | Emergency (ER) | payer MEDICARE, OTHER, SELFPAY ==
[2023-05-18 13:00] VITALS: BP 159/74; PULSE 88; RESP 12; TEMP 36.6; O2SAT 100; BMI 20.9
--- NOTE | 2023-05-18 13:27 | ED.URI ---
HPI - URI/Sore Throat <Rafael Jane PA-C - Last Filed: 05/18/23 15:03> General Chief Complaint: Upper Respiratory Symptoms Stated Complaint: cough/congestion/throat scratchy t-14 Time Seen by Provider: 05/18/23 13:07 Source: patient Mode of arrival: Family Vehicle History of Present Illness HPI Narrative: This is a 67-year-old male presents emergency department due to a cough as well as an irritated throat for the last couple of weeks. He does have an underlying history of COPD. States that he has been coughing up a small amount of clear mucus. Denies any fevers, nausea, vomiting, chills, chest pain. States he does get mildly short of breath. He states that he has been taking [id number] medications without significant relief. Related Data Home Medications Medication Instructions Recorded Confirmed esomeprazole magnesium 2.5 mg ##0 02/06/17 10/18/20 granules delayed release for susp (Nexium Packet) tiotropium bromide 18 mcg capsule ##0 02/06/17 10/18/20 with inhalation device (Spiriva with HandiHaler) Previous Rx's Medication Instructions Recorded gabapentin 300 mg capsule 300 mg PO TID #90 caps 08/23/18 tramadol 50 mg tablet 50 mg PO TID PRN pain #60 tabs 10/14/18 celecoxib 200 mg capsule (Celebrex) 200 mg PO DAILY #90 caps 01/17/19 benzonatate 100 mg capsule 100 mg PO BID PRN cough #30 caps 05/18/23 benzonatate 100 mg capsule 100 mg PO BID PRN cough #30 caps 05/18/23 Allergies Allergy/AdvReac Type Severity Reaction Status Date / Time No Known Drug Allergies Allergy Verified 05/18/23 13:03 Review of Systems <Rafael Jane PA-C - Last Filed: 05/18/23 15:03> Review of Systems Narrative: GENERAL: Denies chills, fatigue, malaise, fever, sweats. HEENT: Reports cough and sore throat, Denies sinus pain, ear pain, difficulty swallowing, dizziness. RESPIRATORY: Reports mild shortness of breath, Denies , cough, wheezing, hemoptysis, sputum. CARDIOVASCULAR: Denies chest pain, palpitations, orthopnea, edema, GASTROINTESTINAL: Denies nausea, vomiting, abdominal pain, diarrhea, constipation, melena. : Denies dysuria, frequency, incontinence, hematuria, urinary retention. MUSCULOSKELETAL: denies weakness, joint pain, or bony pain SKIN: Denies rash, skin lesions, or other NEUROLOGIC: Denies weakness, headache, numbness, change in speech, confusion, seizures, incoordination. PSYCHIATRIC: No concerning psychosocial issues. 12 point review of systems is negative except for those stated above Patient History <Rafael Jane PA-C - Last Filed: 05/18/23 15:03> Social History Smoking Status: Former smoker Smoking Status: Former smoker Substance Use Type: marijuana Exam <Rafael Jane PA-C - Last Filed: 05/18/23 15:03> Narrative Exam Narrative: GENERAL: Well-developed patient, in mild distress. HEAD: Atraumatic. Normocephalic. EYES: Pupils equal round and reactive. Extraocular motions intact. No scleral icterus. No injection or drainage. ENT: Nose without bleeding, purulent drainage. Throat with mild erythema, tonsillar hypertrophy or exudate. Airway patent. NECK: Trachea midline. Non tender CARDIOVASCULAR: Regular rate and rhythm without murmurs, gallops, or rubs. RESPIRATORY: Clear to auscultation. Breath sounds equal bilaterally. No wheezes, rales, or rhonchi. GASTROINTESTINAL: Abdomen soft, non-tender, nondistended. EXTREMITIES: No edema or joint tenderness. BACK: Nontender without deformity or crepitance. No flank tenderness. NEURO: AOx3. SKIN: No rash or erythema of visible areas Initial Vital Signs Initial Vital Signs: Vital Signs Temperature 98 F 05/18/23 13:00 Pulse Rate 88 05/18/23 13:00 Respiratory Rate 12 05/18/23 13:00 Blood Pressure 159/74 H 05/18/23 13:00 Pulse Oximetry 100 05/18/23 13:00 Oxygen Delivery Method Room Air 05/18/23 13:00 <Amol Medrano DO - Last Filed: 05/18/23 15:33> Initial Vital Signs Initial Vital Signs: Vital Signs Temperature 98 F 05/18/23 13:00 Pulse Rate 88 05/18/23 13:00 Respiratory Rate 12 05/18/23 13:00 Blood Pressure 159/74 H 05/18/23 13:00 Pulse Oximetry 100 05/18/23 13:00 Oxygen Delivery Method Room Air 05/18/23 13:00 Course <Rafael Jane PA-C - Last Filed: 05/18/23 15:03> Orders Ordered: ED Orders 05/18/23 13:33 Covid-19 + FLU A/B + RSV - PCR Stat Strep Grp A by PCR Rapid Stat Vital Signs Vital signs: Vital Signs - 8 hr 05/18/23 13:00 05/18/23 14:52 Temperature 98 F 98.0 F Pulse Rate 88 76 Respiratory Rate 12 18 Blood Pressure 159/74 H 141/78 H Pulse Oximetry 100 99 Oxygen Delivery Method Room Air Room Air <Amol Medrano DO - Last Filed: 05/18/23 15:33> Orders Ordered: ED Orders 05/18/23 13:33 Covid-19 + FLU A/B + RSV - PCR Stat Strep Grp A by PCR Rapid Stat Vital Signs Vital signs: Vital Signs - 8 hr 05/18/23 13:00 05/18/23 14:52 Temperature 98 F 98.0 F Pulse Rate 88 76 Respiratory Rate 12 18 Blood Pressure 159/74 H 141/78 H Pulse Oximetry 100 99 Oxygen Delivery Method Room Air Room Air MDM - URI/Sore Throat <Rafael Jane PA-C - Last Filed: 05/18/23 15:03> Lab Data Labs: Lab Results 05/18/23 Range/Units 13:33 SARS-CoV-2 (PCR) Negative (Negative) Influenza A (RT-PCR) Flu a negative (NEGATIVE) Influenza B (RT-PCR) Flu b negative (NEGATIVE) RSV (PCR) Negative (Negative) Group A Strep (PCR) Negative (Negative) MDM Narrative Medical decision making narrative: MDM * differential diagnosis includes but not limited to bronchitis the, pneumonia, COVID, influenza, RSV, * Prior records reviewed: Patient has not been to the emergency department in the past. * My lab interpretation: Rapid strep, COVID, influenza, RSV negative * My imgaing interpretation: None obtained * Clinical Decision Rules/Scores evaluated: None * Independent discussions with: None ED Course: This is a 67-year-old male presents emergency department due to 2 week history of a minimally productive cough. Patient also reports a mild sore throat. Rapid strep, COVID, influenza, RSV negative. Patient does have a history of COPD which may be related to. Patient declines any chest pain or fevers and low concern for pneumonia. Advised to treat symptoms conservatively and symptomatically. Shared Decision Making: Discussed plan with patient who is comfortable with the plan. Social Considerations: None Disposition: Discharged to home <Amol Medrano DO - Last Filed: 05/18/23 15:33> Lab Data Labs: Lab Results 05/18/23 Range/Units 13:33 SARS-CoV-2 (PCR) Negative (Negative) Influenza A (RT-PCR) Flu a negative (NEGATIVE) Influenza B (RT-PCR) Flu b negative (NEGATIVE) RSV (PCR) Negative (Negative) Group A Strep (PCR) Negative (Negative) Discharge Plan Departure Patient Disposition: Home Clinical Impression: Bronchitis Activity Restrictions/Additional Instructions: Thank you for coming to the [facility] Emergency Department today. As discussed your rapid strep, COVID, influenza, and RSV were negative. This may be bronchitis which you are aware of. Please take medications as prescribed to help with your symptoms. If your symptoms continue I recommend recommend following up with the primary care provider. I hope you feel better soon. Please follow up with your primary care provider within a week if your symptoms continue. If you do not have a primary care provider please contact the [facility] Resource line at [phone]. They will ask some questions about your medical history and help you get set up with a provider in the community. Prescriptions: New benzonatate 100 mg capsule 100 mg PO BID PRN (Reason: cough) Qty: 30 0RF benzonatate 100 mg capsule 100 mg PO BID PRN (Reason: cough) Qty: 30 0RF No Action tiotropium bromide [Spiriva with HandiHaler] 18 mcg Capsule, W/Inhalation Device Qty: 0 esomeprazole magnesium [Nexium Packet] 2.[address] For Susp In Packet Qty: 0 gabapentin 300 mg capsule 300 mg PO TID Qty: 90 2RF Rx Instructions: 1-2 Tid prn right leg pain to begin at HS celecoxib [Celebrex] 200 mg capsule 200 mg PO DAILY Qty: 90 2RF tramadol 50 mg tablet 50 mg PO TID PRN (Reason: pain) Qty: 60 1RF Referrals: Hilda Kincaid ARNP [Primary Care Provider] - Stand Alone Forms: Patient Portal/API ED Sign-out <Amol Medrano, DO - Last Filed: 05/18/23 15:33> Cosign ED Attending Cosignature Attestation: I was immediately available in the department for consultation. Documentation has been reviewed. I agree with assessment and plan.
[2023-05-18 13:48] LABS: Strep Grp A by PCR Rapid Negative (Negative)
[2023-05-18 14:20] LABS: Influenza A - CEPHEID Flu A NEGATIVE (NEGATIVE); Influenza B - CEPHEID Flu B NEGATIVE (NEGATIVE); Respiratory Syncytial Virus Negative (Negative)
[2023-05-18 14:24] LABS: COVID-19 CEPHEID 4-PLEX PCR Negative (Negative)
[2023-05-18 14:52] VITALS: BP 141/78; PULSE 76; RESP 18; TEMP 36.7; O2SAT 99
== END 2023-05-18 14:58 | disposition home or self-care (01) ==
PROVIDERS: Emergency Provider Physician Assistant Medical; PCP Nurse Practitioner
DX: J40 Bronchitis, not specified as acute or chronic (principal); Z20.822 Contact with and (suspected) exposure to COVID-19; Z01.812 Encounter for preprocedural laboratory examination; M48.062 Spinal stenosis, lumbar region with neurogenic claudication; M48.07 Spinal stenosis, lumbosacral region; M47.816 Spondylosis without myelopathy or radiculopathy, lumbar region; M47.817 Spondylosis without myelopathy or radiculopathy, lumbosacral region
CPT/HCPCS: 0241U; 36415; 72131; 80048; 85025; 87651; 99282; 99284

== ENCOUNTER → 2025-01-26 13:07 | Outpatient (CLI) | payer MEDICARE, OTHER, SELFPAY ==
--- NOTE | 2025-01-26 13:09 | DI.MRI.S_ITS ---
PROCEDURE: MR KNEE RT WO CON INDICATIONS: internal derangement of right knee; meniscal tear TECHNIQUE: Noncontrast sagittal PD fast spin echo and T2 fast spin echo with fat saturation, sagittal 3-D FLASH with fat saturation; coronal T1 spin echo and PD fast spin echo with fat saturation, and axial PD fast spin echo with fat saturation through the knee. COMPARISON: None. FINDINGS: Image quality: Excellent. Menisci: Markedly abnormal appearance of the medial meniscus with oblique tear posterior horn extending toward the midbody. The medial meniscus is mildly extruded medially on the coronal images. Anterior horn of the medial meniscus is mildly displaced anteriorly otherwise is normal in contour and signal. Posterior meniscocapsular separation medially with numerous posterior parameniscal cysts the largest measuring up to 1.7 cm. Heterogeneous signal within this cyst may represent serosanguineous fluid, calcified loose body measuring up to 6 mm or other. Another multi-septated parameniscal cyst is positioned more medially adjacent to the posterior meniscal root. The lateral meniscus is normal in size contour and and signal without tear. Cruciate ligaments: The anterior and posterior cruciate ligaments appear intact. Medial structures: Mild increased medial bursal fluid is nonspecific. The medial collateral ligament appears intact. The semimembranosus tendon insertion is normal. Visualized portions of the pes anserinus tendons appear normal. Lateral structures: Mild increased T2 weighted signal and thickening of the proximal lateral collateral ligament and of the distal popliteus tendon insertion without full-thickness tear or retraction. The long and short heads of the biceps femoris tendon appear intact. Iliotibial band appears normal. Anterior structures: Mild increased T2 weighted signal/edema of the distal quadriceps tendon medial half and in the suprapatellar fat pad medially. Patellar ligament is normal. Patellar alignment is normal. No femoral trochlear dysplasia or ventral trochlear prominence. No edema in the infrapatellar fat pad. Bones and cartilage: Moderate diffuse cartilaginous thinning with irregularity in the medial compartment and to a lesser degree in the lateral compartment. Mild thinning of the medial patellar facet cartilage otherwise patella and femoral cartilage in the patellofemoral compartment within normal limits. Joint space: Mild knee joint effusion. No significant popliteal cyst. IMPRESSION: Medial meniscal tear as discussed above. Multiple posterior-medial parameniscal cysts as discussed above. Nonspecific mild medial bursal fluid. Mild knee joint effusion. Degenerative changes with cartilage thinning most notably in the medial compartment. Other findings as above. Dictated by: Lei Narayanan M.D. on 01/26/2025 at 15:59 Approved by: Lei Narayanan M.D. on 01/26/2025 at 16:13
== END ==
PROVIDERS: PCP Nurse Practitioner; Referring Provider Orthopaedic Surgery Foot and Ankle Surgery; Visit Provider Orthopaedic Surgery Foot and Ankle Surgery
DX: S83.241A Other tear of medial meniscus, current injury, right knee, initial encounter (principal); M23.91 Unspecified internal derangement of right knee; M25.461 Effusion, right knee
CPT/HCPCS: 73721

== ENCOUNTER 2025-01-26 13:41 | Emergency (ER) | payer MEDICARE, OTHER, SELFPAY ==
[2025-01-26 13:58] VITALS: BP 137/89; PULSE 90; RESP 16; TEMP 36.6; O2SAT 96; BMI 22.2
--- NOTE | 2025-01-26 14:03 | DI.RAD.S_ITS ---
PROCEDURE: XR HIP W PEL IF DONE RT 2V INDICATIONS: increased pain TECHNIQUE: 2 views of the hip were acquired. COMPARISON: None. FINDINGS: Bones: No fractures or dislocations. No suspicious bony lesions. The visualized pelvic ring appears intact. Soft tissues: No suspicious soft tissue calcifications or masses. IMPRESSION: No acute bony abnormality. Dictated by: Adrian Bautista M.D. on 01/26/2025 at 14:37 Approved by: Adrian Bautista M.D. on 01/26/2025 at 14:37
--- NOTE | 2025-01-26 14:54 | ED_ITS ---
<Statement entered by Denzel Lee, DO - 01/26/25 18:41> Co-Sign Statement I was available for consultation during this patient's emergency department visit. This chart is signed by myself for administrative purposes only. I do not have direct contact with this patient during this visit. They were seen by the [facility] independently. HPI - Extremity Injury (Lower) General Chief Complaint: Extremity Injury, Lower Stated Complaint: Rt hip,leg pain x 2weeks Time Seen by Provider: 01/26/25 14:17 Source: patient Mode of arrival: Ambulatory History of Present Illness HPI Narrative: 69-year-old male with chronic low back pain and pain and numbness of the right lower extremity presents with concern for acute on chronic pain most pronounced in the right hip/thigh. He also states he has been having some leg cramping on both sides but especially on the right side in the past week. Patient states that he has been taking all of his regular medications to help with his chronic pain but for the last week and especially the last few days he has been having increasing pain in what he describes as his right hip. Patient initially points to his right thigh and hip but later also points to his sciatic nerve exit at the posterior buttock on the right. He does state that he has contacted his orthopedist and has an appointment with them next week for recheck. Last week he had cortisone shots done in his back and also his knees. He states this is was the 1st time that he had them done in his knees. He has been getting shots in his back for quite awhile and does state that he was referred to have back surgery a year ago but elected to defer this and instead do the shots. He does not remember doing anything differently such as lifting or moving differently to cause an injury. He says that the pain has sometimes been so bad that when he goes to stand up all the way it hurts too much to put weight on his right leg. He feels that his function of his leg has been intact. He states he has had previous advanced imaging including MRIs of his spine. He denies calf pain or swelling, shortness of breath, swelling of his affected right leg, recent fevers, chills, saddle paresthesia, loss of bowel or bladder function, urinary symptoms, new one-sided weakness or any other symptoms or concerns. Related Data Home Medications ?Medication ?Instructions ?Recorded ?Confirmed esomeprazole magnesium 2.5 mg ##0 02/06/17 10/18/20 granules delayed release for susp (Nexium Packet) tiotropium bromide 18 mcg capsule ##0 02/06/17 1 with inhalation device (Spiriva with HandiHaler) Previous Rx's ?Medication ?Instructions ?Recorded gabapentin 300 mg capsule 300 mg PO TID #90 caps 08/23 tramadol 50 mg tablet 50 mg PO TID PRN pain #60 ta bs 10/14/18 celecoxib 200 mg capsule (Celebrex) 200 mg PO DAILY #9 0 caps 01/17/19 benzonatate 100 mg capsule 100 mg PO BID PRN cough #30 caps 05/18/23 benzonatate 100 mg capsule 100 mg PO BID PRN cough #30 caps 05/18/23 baclofen 10 mg tablet 10 mg PO TID PRN muscle spas ms 7 01/26/25 days #21 tabs prednisone 20 mg tablet 40 mg (2 x 20 mg) PO DAILY 4 days 01/26/25 #8 tabs Allergies Allergy/AdvReac Type Severity Reaction Status Date / Time No Known Drug Allergies Allergy Verified 05/18/23 13:03 Review of Systems Review of Systems Narrative: See HPI Exam Narrative Exam Narrative: GENERAL: 69 year old patient appears stated age. Well-developed patient, in mild distress. Patient was generally well-appearing HEAD: Atraumatic. Normocephalic. EYES: Pupils equal round and reactive. Extraocular motions intact. No scleral icterus. No injection or drainage. ENT: Nose without bleeding, purulent drainage. Airway patent. NECK: Trachea midline. CARDIOVASCULAR: Regular rate and rhythm without murmurs, gallops, or rubs. RESPIRATORY: Clear to auscultation. Breath sounds equal bilaterally. No wheezes, rales, or rhonchi. GASTROINTESTINAL: Abdomen soft, non-tender, nondistended. EXTREMITIES: Sensation is very slightly reduced at the medial ankle on the right as compared to the left. Otherwise sensation is intact and equal bilaterally in the lower extremities. Strength is intact and equal 5/5 with active flexion and extension at the hip knee and ankle bilaterally. Patient has some tenderness with palpation over the right buttock, and right trochanter. No edema or joint tenderness. BACK: Non midline or paraspinal tenderness, no deformity or crepitance. No flank tenderness. NEURO: AOx3. SKIN: No rash or erythema of visible areas Initial Vital Signs Initial Vital Signs: Vital Signs Temperature 97.9 F 01/26/25 13:58 Pulse Rate 90 01/26/25 13:58 Respiratory Rate 16 01/26/25 13:58 Blood Pressure 137/89 01/26/25 13:58 Pulse Oximetry 96 01/26/25 13:58 Oxygen Delivery Method Room Air 01/26/25 13:58 Course Orders Ordered: ED Orders 01/26/25 14:03 XR hip w pel RT 2V Stat Discontinued Medications Ketorolac Tromethamine (Ketorolac 30 Mg/Ml Vial) 15 mg IM NOW ONE Stop: 01/26/25 15:03 Last Admin: 01/26/25 15:13 Dose: 15 mg Documented By: BHANU Vital Signs Vital signs: Vital Signs - 8 hr 01/26/25 13:58 01/26/25 15:54 Temperature 97.9 F Pulse Rate 90 69 Respiratory Rate 16 18 Blood Pressure 137/89 126/69 Pulse Oximetry 96 97 Oxygen Delivery Method Room Air Room Air MDM - Extremity Injury (Lower) Differential Diagnosis Differential diagnosis: Likely other (acute on chronic hip/sciatic pain) Medical Records Attestation: I reviewed the patient's medical records. Lab Data Attestation: I reviewed the patient's lab results. Imaging Data Extremity x-ray #1: My Impression: Agree with Radiology interpretation Radiologist's Impression: [address] [address] XRay Report Signed Patient: Hao Rios MR#: [id number] : 1955 Acct:[id number] Age/Sex: 69 / M Date of Service: 01/26/25 Loc: ED Accession Number: [id number] Procedure: XR hip w pel RT 2V Ordering Provider: Jolanta Penn PA-C PROCEDURE: XR HIP W PEL IF DONE RT 2V INDICATIONS: increased pain TECHNIQUE: 2 views of the hip were acquired. COMPARISON: None. FINDINGS: Bones: No fractures or dislocations. No suspicious bony lesions. The visualized pelvic ring appears intact. Soft tissues: No suspicious soft tissue calcifications or masses. IMPRESSION: No acute bony abnormality. Dictated by: Adrian Bautista M.D. on 01/26/2025 at 14:37 Approved by: Adrian Bautista M.D. on 01/26/2025 at 14:37 [facility] Narrative Medical decision making narrative: 69-year-old patient with chronic low back pain and leg pain on the right presents with concern for acute on chronic pain over the past week worsening in the last few days in the setting of recent cortisone shots in both his back and knees bilaterally. Patient's vitals are unremarkable today. His exam shows no reduction in strength and he has no red flag symptoms for back pain. An x-ray of his hip was ordered from triage given he initially endorsed increased hip pain on the right especially with ambulation. This returned with no abnormalities. He has no known injuries and an occult fracture is unlikely. On re-examination patient endorses his worsened pain is mostly in the right buttock at the location of the sciatic nerve exit. Thus suspect he has an exacerbation of his sciatic/nerve compression symptoms. Advanced imaging with CT or MRI is not obtained given known history and suspect exacerbation of chronic pain. Exam and history are not suggestive of UTI. Labs were not obtained. His regular medications have not been helping with his increased recent pain. We discussed options and he will do a 4 day course of prednisone, also baclofen as needed for his muscle tightness/spasming that he states he has had a few times in the last few days in his right leg. He plans to follow up closely with PCP. Will seek re-evaluation if he develops new or concerning symptoms or has no improvement. Return precautions provided, follow-up plan discussed, all questions answered. Discharge Plan Departure Patient Disposition: Home Clinical Impression: Acute on chronic low back pain, Sciatic leg pain Activity Restrictions/Additional Instructions: *You have been diagnosed with [acute on chronic low back pain/sciatic pain] *What to do: *Please continue to take your regular medications as directed. [ X] New medication prescriptions sent to your pharmacy: [ ] [ ] New medication written as a paper prescription [ ] No new medications given *Please follow up with your primary care provider in 2-3 days, call for an appointment. Let them know you were seen in the Emergency Department and that we ask that you be seen in follow up. We will electronically transmit a record of today's note if your PCP is in our system. You came in today with concern for right-sided hip pain feels like a worsening of your low back pain issues that are chronic for you. With worsening pain on that side and worsening numb/tingling sensation as well. Your symptoms and exam are most consistent with an exacerbation of your chronic pain. We did get an x-ray of your hip as you are having hip pain specifically that felt worse than your baseline. This x-ray returned looking fine. I am glad that you have follow up with your orthopedic provider coming up next week. And unfortunate that the shots you got recently were not helpful for your pain. You have had some muscle cramping recently and I suspect that part of your problem currently is that your knee has been causing you problems and you may be walking differently and having some muscle cramping related to changes with her gait. This could also be contributing to your worsening low back/hip pain that you came in for today. We gave you a shot Toradol today in the ER, and I have prescribed a muscle relaxer as well as a short course of steroid medication. I am hopeful that these will improve your symptoms and get you through until your orthopedic appointment next week. If you have new or concerning symptoms or worsening pain/no improvement make sure you seek re-evaluation. *If you do not have a primary care provider please contact the [facility] Resource line at [phone]. They will ask some questions about your medical history and help get you set up with a doctor in the community. *Return to Emergency Department if you should have any new, worsening or concerning symptoms, such as [fever greater than 101 F, shaking chills, worsening pain, persistent vomiting or other bothersome symptoms] Prescriptions: New prednisone 20 mg tablet 40 mg PO DAILY 4 Days Qty: 8 0RF baclofen 10 mg tablet 10 mg PO TID PRN (Reason: muscle spasms) 7 Days Qty: 21 0RF No Action tiotropium bromide [Spiriva with HandiHaler] 18 mcg Capsule, W/Inhalation Device Qty: 0 esomeprazole magnesium [Nexium Packet] 2.[address] For Susp In Packet Qty: 0 benzonatate 100 mg capsule 100 mg PO BID PRN (Reason: cough) Qty: 30 0RF benzonatate 100 mg capsule 100 mg PO BID PRN (Reason: cough) Qty: 30 0RF gabapentin 300 mg capsule 300 mg PO TID Qty: 90 2RF Rx Instructions: 1-2 Tid prn right leg pain to begin at HS celecoxib [Celebrex] 200 mg capsule 200 mg PO DAILY Qty: 90 2RF tramadol 50 mg tablet 50 mg PO TID PRN (Reason: pain) Qty: 60 1RF Referrals: Hilda Kincaid ARNP [Primary Care Provider, Nursing] Stand Alone Forms: Patient Portal/API
[2025-01-26] MEDS: KETOROLAC 30 MG/ML VIAL 15 MG IM (15:13)
[2025-01-26 15:54] VITALS: BP 126/69; PULSE 69; RESP 18; O2SAT 97
== END 2025-01-26 15:56 | disposition home or self-care (01) ==
PROVIDERS: Emergency Provider Student in an Organized Health Care Education/Training Program; PCP Nurse Practitioner
DX: M54.50 Low back pain, unspecified (principal); M54.31 Sciatica, right side; S83.241A Other tear of medial meniscus, current injury, right knee, initial encounter; M25.461 Effusion, right knee; M23.91 Unspecified internal derangement of right knee
CPT/HCPCS: 73502; 73721; 96372; 99283; J1885